=== PATIENT | male | born 1955 | race Caucasian/White ===

== ENCOUNTER 2016-12-24 16:55 | Emergency (ER) | payer MEDICARE ==
[2016-12-24 21:02] LABS: BASOPHILS 0.1 % (0-2); EOSINOPHILS 0.8 % (0-7); HEMATOCRIT 38.5 % (42.0-54.0); HEMOGLOBIN 12.4 g/dL (13.5-17.5); IMMATURE GRANULOCYTES 0.3 % (0-5); MCH 29.2 pg (26.0-34.0); MCHC 32.2 g/dL (31.0-37.0); MCV 90.8 fL (80.0-100.0); MEAN PLATELET VOLUME 8.9 fL (7.4-10.4); MONOCYTES 4.4 % (2-11); NEUTROPHILS 78.4 % (40-80); PLATELET COUNT 248 10x3/uL (130-400); RBC 4.24 10x6/uL (4.20-6.10); RDW 14.3 % (11.5-14.5); WBC 13.6 10x3/uL (4.8-10.8)
[2016-12-24 21:28] LABS: ALBUMIN 3.1 g/dL (3.4-5.0); BILIRUBIN - TOTAL 0.24 mg/dL (0.2-1.3); CALCIUM 9.4 mg/dL (8.5-10.1); CARBON DIOXIDE 25.8 mmol/L (21.0-32.0); CREATININE - SERUM 1.1 mg/dL (0.6-1.3); POTASSIUM - SERUM 3.8 mmol/L (3.5-5.1); PROTEIN - SERUM 7.5 g/dL (6.4-8.2)
== END 2016-12-24 22:00 | disposition home or self-care (01) ==
LOC: D.ER 16:55
PROVIDERS: Nurse Practitioner Family
DX: R19.7 Diarrhea, unspecified (principal); R05 Cough; M54.2 Cervicalgia; M54.5 Low back pain; J44.1 Chronic obstructive pulmonary disease with (acute) exacerbation; I10 Essential (primary) hypertension

== ENCOUNTER 2017-03-02 11:24 | Emergency (ER) | payer MEDICARE | END 2017-03-02 13:25 | disposition home or self-care (01) | LOC: D.ER 11:24 | DX: M54.5 Low back pain (principal); M54.10 Radiculopathy, site unspecified ==

== ENCOUNTER 2017-03-16 09:24 | Emergency (ER) | payer MEDICARE | END 2017-03-16 11:30 | disposition home or self-care (01) | LOC: D.ER 09:24 | DX: M54.16 Radiculopathy, lumbar region (principal); I10 Essential (primary) hypertension; J44.9 Chronic obstructive pulmonary disease, unspecified ==

== ENCOUNTER 2017-03-23 11:23 | Emergency (ER) | payer MEDICARE | END 2017-03-23 12:59 | disposition home or self-care (01) | LOC: D.ER 11:23 | DX: R06.00 Dyspnea, unspecified (principal); J45.909 Unspecified asthma, uncomplicated; J44.9 Chronic obstructive pulmonary disease, unspecified; I10 Essential (primary) hypertension; F17.200 Nicotine dependence, unspecified, uncomplicated ==

== ENCOUNTER 2017-04-10 10:16 | Emergency (ER) | payer MEDICARE | END 2017-04-10 12:15 | disposition home or self-care (01) | LOC: D.ER 10:16 | DX: M54.5 Low back pain (principal); M62.838 Other muscle spasm; J44.9 Chronic obstructive pulmonary disease, unspecified; I10 Essential (primary) hypertension ==

== ENCOUNTER 2017-05-05 10:09 | Emergency (ER) | payer MEDICARE ==
[2017-06-30 17:41] VITALS: BMI 28.2
== END 2017-05-05 12:23 | disposition home or self-care (01) ==
LOC: D.ER 10:09
DX: M54.16 Radiculopathy, lumbar region (principal); J44.9 Chronic obstructive pulmonary disease, unspecified; I10 Essential (primary) hypertension

== ENCOUNTER 2017-05-06 13:04 | Emergency (ER) | payer MEDICARE ==
[2017-05-06 15:00] LABS: BASOPHILS 0.3 % (0-2); EOSINOPHILS 1.3 % (0-7); HEMATOCRIT 43.7 % (42.0-54.0); HEMOGLOBIN 13.7 g/dL (13.5-17.5); IMMATURE GRANULOCYTES 0.2 % (0-5); LYMPHOCYTES 20.1 % (15-50); MCH 28.6 pg (26.0-34.0); MCHC 31.4 g/dL (31.0-37.0); MCV 91.2 fL (80.0-100.0); MEAN PLATELET VOLUME 9.3 fL (7.4-10.4); MONOCYTES 7.1 % (2-11); RBC 4.79 10x6/uL (4.20-6.10); RDW 14.4 % (11.5-14.5); WBC 11.2 10x3/uL (4.8-10.8)
[2017-05-06 15:04] LABS: APPEARANCE CLEAR (CLEAR); COLOR YELLOW (YELLOW)
[2017-05-06 15:04] LABS: PLATELET COUNT 480 10x3/uL (130-400)
[2017-05-06 15:05] LABS: BILIRUBIN NEGATIVE (NEGATIVE); GLUCOSE NEGATIVE (NEGATIVE); KETONE NEGATIVE (NEGATIVE); NITRITE NEGATIVE (NEGATIVE); PROTEIN NEGATIVE (NEGATIVE); SPECIFIC GRAVITY 1.015 (1.005-1.020); UROBILINOGEN NORMAL (NORMAL)
[2017-05-06 16:02] LABS: ALBUMIN 3.7 g/dL (3.4-5.0); ANION GAP 18.6 mmol/L (8-16); BILIRUBIN - TOTAL 0.12 mg/dL (0.2-1.3); CALCIUM 9.3 mg/dL (8.5-10.1); CARBON DIOXIDE 20.8 mmol/L (21.0-32.0); CREATININE - SERUM 1.5 mg/dL (0.6-1.3); POTASSIUM - SERUM 4.4 mmol/L (3.5-5.1); PROTEIN - SERUM 7.6 g/dL (6.4-8.2)
[2017-06-30 17:41] VITALS: BMI 28.2
== END 2017-05-06 19:40 | disposition home or self-care (01) ==
LOC: D.ER 13:04
PROVIDERS: Family Medicine; Physician Assistant
DX: R10.32 Left lower quadrant pain (principal); R10.31 Right lower quadrant pain; J44.9 Chronic obstructive pulmonary disease, unspecified; I10 Essential (primary) hypertension; Z79.01 Long term (current) use of anticoagulants; F17.200 Nicotine dependence, unspecified, uncomplicated

== ENCOUNTER 2017-06-01 10:32 | Emergency (ER) | payer MEDICARE ==
[2017-06-30 17:41] VITALS: BMI 28.2
== END 2017-06-01 13:58 | disposition home or self-care (01) ==
LOC: D.ER 10:32
DX: M54.16 Radiculopathy, lumbar region (principal); I10 Essential (primary) hypertension; J44.9 Chronic obstructive pulmonary disease, unspecified; F17.200 Nicotine dependence, unspecified, uncomplicated

== ENCOUNTER 2017-06-16 11:28 | Emergency (ER) | payer MEDICARE ==
[2017-06-30 17:41] VITALS: BMI 28.2
== END 2017-06-16 16:16 | disposition home or self-care (01) ==
LOC: D.ER 11:28
DX: M54.16 Radiculopathy, lumbar region (principal); I10 Essential (primary) hypertension; J44.9 Chronic obstructive pulmonary disease, unspecified; J45.909 Unspecified asthma, uncomplicated

== ENCOUNTER 2017-06-29 22:17 | Inpatient (IN) | payer MEDICARE ==
[~2017-06-29] VITALS: Ht 165.1 cm; Wt 77.1 kg
[2017-06-29 22:56] LABS: BASOPHILS 0.1 % (0-2); EOSINOPHILS 1.2 % (0-7); HEMATOCRIT 33.7 % (42.0-54.0); HEMOGLOBIN 10.6 g/dL (13.5-17.5); IMMATURE GRANULOCYTES 0.3 % (0-5); LYMPHOCYTES 15.5 % (15-50); MCH 28.6 pg (26.0-34.0); MCHC 31.5 g/dL (31.0-37.0); MCV 91.1 fL (80.0-100.0); MONOCYTES 6.3 % (2-11); NEUTROPHILS 76.6 % (40-80); RDW 15.1 % (11.5-14.5); WBC 15.3 10x3/uL (4.8-10.8)
[2017-06-29 22:58] LABS: PLATELET COUNT 371 10x3/uL (130-400)
[2017-06-29 23:20] LABS: ALKALINE PHOSPHATASE 90 U/L (46-116); ALT (SGPT) 71 U/L (10-68); BILIRUBIN - TOTAL 0.25 mg/dL (0.2-1.3); CALC OSMOLALITY 292 mosm/kg (275-300); CALCIUM 7.9 mg/dL (8.5-10.1); CARBON DIOXIDE 22.6 mmol/L (21.0-32.0); CHLORIDE - SERUM 106 mmol/L (98-107); CREATININE - SERUM 5.4 mg/dL (0.6-1.3); GLUCOSE 83 mg/dL (74-106); POTASSIUM - SERUM 4.9 mmol/L (3.5-5.1); PROTEIN - SERUM 7.1 g/dL (6.4-8.2); SODIUM 141 mmol/L (136-145); UREA NITROGEN 50 mg/dL (7-18); eGFR NON AFRICAN AMERICAN 11 mL/min (90-120)
[2017-06-29 23:35] LABS: AMYLASE - SERUM 49 U/L (25-115); CREATINE KINASE 13673 UL (21-232); LIPASE 86 U/L (73-393); PRO BNP 109 pg/mL (0-125); TROPONIN-I < 0.017 ng/mL (0.000-0.060)
[2017-06-30 00:02] LABS: CKMB 79.2 U/L (0.0-3.6)
[2017-06-30 00:24] LABS: APPEARANCE CLEAR (CLEAR); BILIRUBIN NEGATIVE (NEGATIVE); COLOR YELLOW (YELLOW); GLUCOSE NEGATIVE (NEGATIVE); KETONE NEGATIVE (NEGATIVE); NITRITE NEGATIVE (NEGATIVE); PROTEIN TRACE mg/dL (NEGATIVE); UROBILINOGEN NORMAL (NORMAL)
[2017-06-30 00:25] LABS: BACTERIA FEW /hpf (NONE SEEN); EPITHELIAL CELLS 0-5 /hpf (0-5); HYALINE CAST OCC /lpf (NONE SEEN); RED CELLS - URINE 0-5 /hpf (0-5); WHITE CELLS - URINE 0-5 /hpf (0-5)
[2017-06-30 00:27] LABS: UDS - AMPHET NEGATIVE QUAL (NEGATIVE); UDS - BARB NEGATIVE QUAL (NEGATIVE); UDS - BENZO POSITIVE QUAL (NEGATIVE); UDS - COCAINE NEGATIVE QUAL (NEGATIVE); UDS - OPIATE NEGATIVE QUAL (NEGATIVE); UDS - PCP NEGATIVE QUAL (NEGATIVE); UDS - THC NEGATIVE QUAL (NEGATIVE)
[2017-06-30 02:28] LABS: BASOPHILS 0.1 % (0-2); EOSINOPHILS 1.5 % (0-7); HEMATOCRIT 28.5 % (42.0-54.0); HEMOGLOBIN 8.9 g/dL (13.5-17.5); IMMATURE GRANULOCYTES 0.3 % (0-5); LYMPHOCYTES 13.2 % (15-50); MCH 28.7 pg (26.0-34.0); MCHC 31.2 g/dL (31.0-37.0); MCV 91.9 fL (80.0-100.0); MEAN PLATELET VOLUME 9.3 fL (7.4-10.4); MONOCYTES 6.5 % (2-11); NEUTROPHILS 78.4 % (40-80); PLATELET COUNT 392 10x3/uL (130-400); RDW 15.3 % (11.5-14.5); WBC 13.8 10x3/uL (4.8-10.8)
--- NOTE | 2017-06-30 03:30 | NUR ---
RECIEVED TO ROOM 2132 FROM ER VIA STRETCHER. RESPERATIONS EVEN ON O2 AT 2 LITER VIA NC. PLACED ON TELEMETRY. IV TO LEFT AC SL, SITE CLEAN AND DRY. PT DENIES PAIN OR NEEDS, BED LOW, CL IN REACH.
[2017-06-30 03:45] VITALS: BMI 28.3
[2017-06-30] MEDS ORDERED: VALIUM10 MG PO (03:56)
[2017-06-30] MEDS ORDERED: ZANAFLEX4 MG PO (03:57)
[2017-06-30] MEDS ORDERED: DESERYL100 MG PO (03:57)
[2017-06-30] MEDS ORDERED: ELIQUIS2.5 MG PO (03:58)
[2017-06-30 06:23] LABS: BASOPHILS 0.2 % (0-2); EOSINOPHILS 1.9 % (0-7); HEMATOCRIT 30.1 % (42.0-54.0); HEMOGLOBIN 9.3 g/dL (13.5-17.5); IMMATURE GRANULOCYTES 0.3 % (0-5); LYMPHOCYTES 19.7 % (15-50); MCH 28.4 pg (26.0-34.0); MCHC 30.9 g/dL (31.0-37.0); MONOCYTES 6.6 % (2-11); NEUTROPHILS 71.3 % (40-80); PLATELET COUNT 373 10x3/uL (130-400); RBC 3.27 10x6/uL (4.20-6.10); RDW 15.4 % (11.5-14.5)
--- NOTE | 2017-06-30 06:25 | NUR ---
COTTON PRESSER AT BED SIDE, BATH COMPLETE.
[2017-06-30 06:32] VITALS: BP 95/41
[2017-06-30 06:40] LABS: ALBUMIN 2.4 g/dL (3.4-5.0); BILIRUBIN - TOTAL 0.2 mg/dL (0.2-1.3); CALCIUM 7.1 mg/dL (8.5-10.1); PROTEIN - SERUM 5.8 g/dL (6.4-8.2)
--- NOTE | 2017-06-30 07:00 | NUR ---
RECEIVED REPORT. ASSUMED CARE OF PATIENT. CALL LIGHT WITHIN REACH. PATIENT ALERT/AWAKE SITTING UP IN BED. RESP EVEN AND UNLABORED. TRACH NOTED. NO DISTRESS. DENIES NEEDS AT THIS TIME.
[2017-06-30 08:22] VITALS: BP 100/52
--- NOTE | 2017-06-30 08:41 | NUR ---
SCDS APPLIED TO BILATERAL LOWER EXTREMITIES.
--- NOTE | 2017-06-30 09:26 | NUR ---
NEW ORDERS FROM TO MAKE PATIENT NPO FOR EDG DUE TO FINDINGS ON CT.
--- NOTE | 2017-06-30 10:03 | NUR ---
0950 CONSENTS SIGNED AND ON CHART FOR EDG.
--- NOTE | 2017-06-30 10:35 | NUR ---
PATIENT SITTING IN HIS BED. PATIENT FOUND TO BE DRINKING WATER. EXPLAINED TO PATIENT AGAIN THAT HE IS NPO FOR THE PROCEDURE. IV FLUIDS FOUND TURNED OFF AND PATIENT STATES THAT HE TURNED THE PUMP OFF. INSTRUCTED PATIENT TO PLEASE CALL THE STAFF OR NURSE AND NOT TO MESS WITH THE IV EQUIPMENT. PATIENT IS ALERT/ORIENTED BUT REQUIRES FREQUENT QUES AND REMINDERS.
[2017-06-30 12:37] VITALS: BP 105/56
[2017-06-30 13:15] VITALS: BMI 28.2
--- NOTE | 2017-06-30 16:14 | NUR ---
PREOP MEDICATIONS ADMINISTERED. PATIENT LEFT UNIT VIA BED AT THIS TIME. NO DISTRESS UPON LEAVING UNIT.
[2017-06-30 16:28] VITALS: BP 113/62
--- NOTE | 2017-06-30 17:15 | NUR ---
RECEIVED REPORT FROM MILADIS. PATIENT BACK TO UNIT SOON. NO TREATMENT NEEDED. NO BLEEDING AREAS.
--- NOTE | 2017-06-30 17:31 | NUR ---
RECEIVED PATIENT BACK FROM EGD. RESTING WITH EYES CLOSED, EASILY AROUSED. BP 125/66. IV FLUIDS INFUSING ORDERED. CALL LIGHT WITHIN REACH. NO DISTRESS.
[2017-06-30 17:41] VITALS: Ht 165.1 cm; Wt 77.1 kg
[2017-06-30 21:26] VITALS: BP 135/89
--- NOTE | 2017-06-30 21:40 | NUR ---
HS MEDS GIVEN WITH FRESH ICE WATER. ULTRAM 1 TAB GIVEN FOR C/O GENERALIZED PAIN.
[2017-07-01] VITALS: BP 136/81
--- NOTE | 2017-07-01 01:37 | NUR ---
ANSWERED CL, PT UP IN ROOM, HAS CL, O2 TUBING, TELEPHONE, AND IV TUBING ALL TANGLED UP TOGETHER. ASKED PT WHAT HE WAS DOING AND HE STATED THAT HE WAS TRYING TO DE TANGLE THE WIRES, STATED THAT THE NURSE CAME IN AND TOOK OFF HIS TELEMETRY, INFORMED PT THAT I WAS HIS NURSE AND THAT I DID NO SUCH THING, PT THEN STATED THAT IT WAS ANOTHER NURSE THAT CAME IN AND MADE SUCH A MESS. ASSISTED PT BACK TO BED AND UNTANGLED ALL WIRES. APPLIED NEW TELEMETRY STICKERS AND RECONNECTED MONITOR. PT ASKING WHERE HIS PANCAKES, WAFFLES, COFFEE AND ORANGE JUICE WAS, TOLD PT THAT IT IS ONE OCLOCK IN THE MORNING, THE KITCHEN IS CLOSED BUT WILL DO MY BEST TO GET HIM WHAT HE IS ASKING FOR IN THE MORNING. ASKED PT TO STAY IN BED AND USE CL IF NEEDED ASSISTANCE.
--- NOTE | 2017-07-01 03:21 | NUR ---
PT IN BED RESTING QUIETLY. BREATHING EVEN AND UNLABORED. WILL CTM.
[2017-07-01 04:59] LABS: BASOPHILS 0.2 % (0-2); EOSINOPHILS 2.5 % (0-7); HEMATOCRIT 27.8 % (42.0-54.0); HEMOGLOBIN 8.7 g/dL (13.5-17.5); IMMATURE GRANULOCYTES 0.1 % (0-5); MCH 28.4 pg (26.0-34.0); MCHC 31.3 g/dL (31.0-37.0); MCV 90.8 fL (80.0-100.0); MEAN PLATELET VOLUME 8.9 fL (7.4-10.4); MONOCYTES 5.9 % (2-11); NEUTROPHILS 69.3 % (40-80); PLATELET COUNT 348 10x3/uL (130-400); RBC 3.06 10x6/uL (4.20-6.10); RDW 15.4 % (11.5-14.5)
[2017-07-01 05:10] LABS: WBC 8.8 10x3/uL (4.8-10.8)
--- NOTE | 2017-07-01 05:17 | NUR ---
RESTING WITH EYES CLOSED, RESPERATIONS EVEN, NO S/S DISTRESS NOTED.
[2017-07-01 05:19] LABS: % SATURATION 6 % (15-55); IRON 14 ug/dl (35-150); TOTAL IRON BIND CAPACITY 227 ug/dl (260-445); UNSAT IRON BIND CAPACITY 213 ug/dl (150-375)
[2017-07-01 05:45] LABS: ALBUMIN 2.4 g/dL (3.4-5.0); ALKALINE PHOSPHATASE 76 U/L (46-116); ALT (SGPT) 62 U/L (10-68); BILIRUBIN - TOTAL 0.15 mg/dL (0.2-1.3); CALC OSMOLALITY 282 mosm/kg (275-300); CALCIUM 7.3 mg/dL (8.5-10.1); CARBON DIOXIDE 24.8 mmol/L (21.0-32.0); CHLORIDE - SERUM 110 mmol/L (98-107); CKMB 21.2 U/L (0.0-3.6); CREATINE KINASE 6042 UL (21-232); CREATININE - SERUM 1.8 mg/dL (0.6-1.3); FERRITIN 68 ng/mL (3-244); GLUCOSE 83 mg/dL (74-106); MAGNESIUM - SERUM 2.1 mg/dL (1.8-2.4); POTASSIUM - SERUM 4.4 mmol/L (3.5-5.1); PROTEIN - SERUM 6.1 g/dL (6.4-8.2); SODIUM 141 mmol/L (136-145); THYROID STIMULATING HORMONE 2.13 uIU/mL (0.36-3.74); UREA NITROGEN 22 mg/dL (7-18); eGFR NON AFRICAN AMERICAN 41 mL/min (90-120)
[2017-07-01 06:27] VITALS: BP 114/66
--- NOTE | 2017-07-01 07:09 | NUR ---
PT IN BED, RESP EVEN AND UNLABORED. LT AC SL, PT C/O OF BACK PAIN, WILL SEE IF HE CAN HAVE SOMETHING FOR PAIN. MANUFACTURER'S SERVICE REPRESENTATIVE AT BEDSIDE TO DO VITAL SIGNS. PT DENIES ANY NEEDS AT THIS TIME. CALL LIGHT IN REACH, NAD NOTED, WILL CONTINUE CONTINUE PLAN OF CARE.
[2017-07-01 07:31] VITALS: BP 126/72
--- NOTE | 2017-07-01 08:38 | NUR ---
VALIUM GIVEN ORDERED ALSO ADMINSITERED 50MG OF ULTRAM GIVEN FOR PAIN LEVEL OF 10/10. PT ASKING ABOUT HIS ELIQUIS, STATED " I HAVE BLOOD CLOTS ON MY LUNGS SO I NEED TO TAKE IT." INFOMRED PT THAT I WOULD CALL THE DOCTOR TO SEE IF WE CAN HAVE THE ELIQUIS STARTED. PT IN BED, DENIES ANY OTHER NEEDS AT THIS TIME. CALL LIGHT IN REACH, NAD NOTED, WILL CONTINUE PLAN OF CARE.
--- NOTE | 2017-07-01 11:10 | NUR ---
PT'S LIGHT ON, WENT TO CHECK ON PT, AND PT STATED " MY IV CAME OUT, I WAS GOING TO THE BATHROOM AND IT CAME OUT." IV OUT WITH TIP INTACT, CLEANED SITE AND COVERED WITH 2X2 AND TAPE. PT DENIES ANY NEEDS AT THIS TIME. CALL LIGHT IN REACH, NAD NOTED, WILL CONTINUE PLAN OF CARE.
[2017-07-01 11:41] VITALS: BP 105/68
[2017-07-01 16:37] VITALS: BP 115/62
--- NOTE | 2017-07-01 17:03 | NUR ---
Patient Name: ZAIRE CARRILLO Admission Status: ER Accout number: [id number] Admission Date: 06-30-2017 : 1955 Admission Diagnosis: Attending: Julio Trevino Current LOS: 1 Anticipated DC Date: 07-02-2017 Planned Disposition: Home Primary Insurance: MEDICARE A & B Discharge Planning Comments: * Is the patient Alert and Oriented? Yes 0 * How many steps to enter\exit or inside your home? 3 0 * PCP DR. REYNAGA AT [facility] ON [address] * Pharmacy [facility] OR [facility] AT [address] 0 * Preadmission Environment Home Alone 0 * ADLs Independent 0 * Equipment Cane 0 * Other Equipment NO MEDICAL EQUIPMENT PROVIDER PREFERENCE 0 * List name and contact numbers for known caregivers / representatives who currently or will assist patient after discharge: BROTHER TERRAZAS, 0 * Community resources currently utilized None 0 * Please name any agencies selected above. NONE 0 * Additional services required to return to the preadmission environment? No 0 * Can the patient safely return to the preadmission environment? Yes 0 * Has this patient been hospitalized within the prior 30 days at any hospital? No 0 CM RECEIVED ORDER TO ASCERTAIN PT'S LIVING SITUATION AND DISCHARGE PLANNING. CM MET WITH PT IN ROOM TO DISCUSS DISCHARGE PLANNING AND NEEDS. PT REPORTS LIVING AT [facility], HAS APARTMENT WITH A ROOMMATE. PT HAS ASSISTANCE WITH MEAL PREPARATION AND TRANSPORATATION AT TIMES BUT THAT IS SPORADIC. PT HAS A CANE ONLY WITH NO MEDICAL EQUIPMENT PROVIDER AND NO OUTSIDE SERVICES ASSISTING IN THE HOME. CM DISCUSSED AVAILABILITY OF HOME HEALTH, REHAB SERVICES AND MEDICAL EQUIPMENT. PT DENIES DISCHARGE NEEDS, REPORTS HE WILL CALL [facility] TO PICK HIM UP AT DISCHARGE. CM TO CONTINUE TO FOLLOW AND ASSIST NEEDED. Concrete Block Molder: Tommy Hope
--- NOTE | 2017-07-01 20:45 | NUR ---
PT RESTING COMFORTABLY, EASILY ROUSABLE TO VERBAL STIMULI, NO NEEDS AT THIS TIME. CONTINUE TO MONITOR CLOSELY.
[2017-07-01 21:03] VITALS: BP 140/87
--- NOTE | 2017-07-02 02:28 | NUR ---
PT DISROBES AND WALKS AROUND THE UNIT SEARCHING FOR A BATHROOM AND WANTING TO USE THE PHONE. PT DEMONSTRATES CONFUSION WITH PLACE, TIME, AND SITUATION. PT WILL NOT STAY IN BED LONG ENOUGH TO KEEP HIS IV INFUSING. PT IS EASILY REORIENTED, HOWEVER, HE FORGETS QUICKLY. CURRENTLY PT IS SITTING UP IN HIS BED, NO NEEDS. CONTINUE TO MONITOR CLOSELY.
[2017-07-02 04:47] LABS: BASOPHILS 0.3 % (0-2); EOSINOPHILS 3.1 % (0-7); HEMATOCRIT 28.3 % (42.0-54.0); HEMOGLOBIN 8.7 g/dL (13.5-17.5); IMMATURE GRANULOCYTES 0.1 % (0-5); LYMPHOCYTES 30.4 % (15-50); MCHC 30.7 g/dL (31.0-37.0); MEAN PLATELET VOLUME 9.2 fL (7.4-10.4); MONOCYTES 7.5 % (2-11); NEUTROPHILS 58.6 % (40-80); PLATELET COUNT 382 10x3/uL (130-400); RBC 3.11 10x6/uL (4.20-6.10); RDW 15.2 % (11.5-14.5); WBC 7.1 10x3/uL (4.8-10.8)
--- NOTE | 2017-07-02 05:36 | NUR ---
MR. CARRILLO WAS FOUND GOING INTO OTHER PTS ROOM, COMPLETELY NUDE, CONFUSED, AND MAKING THE OTHER PATIENTS IN ROOM 2129 AND 2128 UNCOMFORTABLE. PT WAS ESCORTED BACK TO HIS ROOM BY KE LEE, AND ASKED TO PLEASE STAY IN HIS ROOM AFTER GETTING DRESSED. PT HAS BEEN ACTING INAPPROPRIATE ALL SHIFT, HAS BEEN RESTLESS, AND WANDERING THE UNIT MOST OF THIS SHIFT.
[2017-07-02 05:40] VITALS: BP 157/79
[2017-07-02 05:41] LABS: ALBUMIN 2.4 g/dL (3.4-5.0); ALKALINE PHOSPHATASE 75 U/L (46-116); ALT (SGPT) 55 U/L (10-68); BILIRUBIN - TOTAL 0.14 mg/dL (0.2-1.3); CALC OSMOLALITY 278 mosm/kg (275-300); CALCIUM 7.6 mg/dL (8.5-10.1); CHLORIDE - SERUM 108 mmol/L (98-107); CKMB 7.7 U/L (0.0-3.6); CREATINE KINASE 2920 UL (21-232); CREATININE - SERUM 1.5 mg/dL (0.6-1.3); GLUCOSE 88 mg/dL (74-106); MAGNESIUM - SERUM 1.9 mg/dL (1.8-2.4); POTASSIUM - SERUM 4.3 mmol/L (3.5-5.1); SODIUM 140 mmol/L (136-145); UREA NITROGEN 15 mg/dL (7-18); eGFR NON AFRICAN AMERICAN 51 mL/min (90-120)
[2017-07-02] MEDS ORDERED: PROTONIX40 MG PO (06:55)
[2017-07-02] MEDS ORDERED: CARAFATE1 G/10 ML PO (06:56)
[2017-07-02 08:22] LABS: FOLATE (FOLIC ACID) - SERUM 6.8 ng/mL (>3.0)
--- NOTE | 2017-07-02 08:24 | NUR ---
AM MEDS GIVEN AT THIS TIME. PT ASKING WHEN HE CAN HAVE PAIN MEDICATION. INFOMRED PT THAT IT WOULD BE AROUND 12. PT IN BED, EATING BREAKFAST, DENIES ANY OTHER NEEDS AT THIS TIME. CALL LIGHT IN REACH,NAD NOTED, WILL CONTINUE PLAN OF CARE.
[2017-07-02 08:34] VITALS: BP 159/59
--- NOTE | 2017-07-02 10:50 | NUR ---
PROVIDED VERBAL AND WRITTEN DISCHARGE TEACHING TO PT, PT VERBALIZED UNDERSTANDING, D/C RT FA IV, TIP INTACT. PT STATED TAXI IS WAITING FOR HIM DOWNSTAIRS. PT LEFT UNIT VIA WHEELCHAIR, NAD NOTED.
--- NOTE | 2017-07-02 18:08 | NUR ---
Patient Name: ZAIRE CARRILLO Encounter No: [id number] : 1955 Primary Insurance: MEDICARE A & B Anticipated DC Date: 07-02-2017 Planned Disposition: Home LATE ENTRY: DCP follow-up note: CM RECEIVED HOME HEALTH ORDER, WAS ADVISED BY PLATE CORRECTOR NURSE THAT THEY ATTEMPTED TO SCHEDULE FOLLOW UP APPOINTMENT WITH DR. REYNAGA AND PT HAS BEEN FIRED BY THE DOCTOR. CM CALLED DR. GLEZ, SPOKE TO 'S NURSE, NOTIFIED THAT PT HAS NO PRIMARY CARE DOCTOR AND FOR HOME HEALTH TO BE ARRANGED, DR. GLEZ WOULD HAVE TO ORDER AND FOLLOW ORDERS FOR HOME HEALTH; DR. GLEZ WAS CONTACTED BY HIS NURSE WHO ADVISED CM THAT THE DOCTOR WILL NOT FOLLOW FOR HOME HEALTH AND NO HOME HEALTH TO BE ARRANGED. CM MET WITH PT IN ROOM WHO REPORTS HE WAS NOT INFORMED OF HIS PRIMARY DOCTORS DECISION TO NOT SEE HIM ANY LONGER. CM PROVIDED PT WITH MEDICARE LISTING OF LOCAL DOCTORS AND ALSO INFORMATION TO [facility]. CM DISCUSSED IMPORTANCE OF SECURING PRIMARY CARE SOON POSSIBLE. PT REPORTED UNDERSTANDING AND HAS CALLED [facility] FOR TRANSPORTATION HOME. PT DENIES NEEDS. Tommy Hope, CASE MANAGEMENT
== END 2017-07-02 11:06 | disposition home or self-care (01) | DRG 381 ==
LOC: D.ER 22:17 → D.M2 06-30 02:27
PROVIDERS: Family Medicine; Internal Medicine Gastroenterology; ADMIT Family Medicine
PROC: 0DB78ZX Excision of Stomach, Pylorus, Via Natural or Artificial Opening Endoscopic, Diagnostic (ICD-10-PCS; 2017-06-30)
PROC: 0DB58ZX Excision of Esophagus, Via Natural or Artificial Opening Endoscopic, Diagnostic (ICD-10-PCS; 2017-06-30)
PROC: 0DB98ZX Excision of Duodenum, Via Natural or Artificial Opening Endoscopic, Diagnostic (ICD-10-PCS; principal; 2017-06-30 16:00)
DX: K22.11 Ulcer of esophagus with bleeding (principal); D62 Acute posthemorrhagic anemia; M62.82 Rhabdomyolysis; N17.9 Acute kidney failure, unspecified; K44.9 Diaphragmatic hernia without obstruction or gangrene; K22.70 Barrett's esophagus without dysplasia; K29.70 Gastritis, unspecified, without bleeding; Z93.0 Tracheostomy status; I10 Essential (primary) hypertension; Z72.0 Tobacco use

== ENCOUNTER 2017-07-09 11:23 | Emergency (ER) | payer MEDICARE ==
[2017-06-30 17:41] VITALS: BMI 28.2
[~2017-07-09 11:23] MED LIST: CARAFATE1 G/10 ML PO; DESERYL100 MG PO; ELIQUIS2.5 MG PO; PROTONIX40 MG PO; VALIUM10 MG PO; ZANAFLEX4 MG PO
== END 2017-07-09 12:50 | disposition home or self-care (01) ==
LOC: D.ER 11:23
DX: M54.16 Radiculopathy, lumbar region (principal); J44.9 Chronic obstructive pulmonary disease, unspecified; I10 Essential (primary) hypertension

== ENCOUNTER 2017-07-10 14:17 | Emergency (ER) | payer MEDICARE ==
[2017-06-30 17:41] VITALS: BMI 28.2
== END 2017-07-10 16:10 | disposition home or self-care (01) ==
LOC: D.ER 14:17
DX: M54.5 Low back pain (principal)

== ENCOUNTER 2017-07-16 12:04 | Emergency (ER) | payer MEDICARE ==
[2017-06-30 17:41] VITALS: BMI 28.2
== END 2017-07-16 16:06 | disposition home or self-care (01) ==
LOC: D.ER 12:04
DX: M54.30 Sciatica, unspecified side (principal); S39.012A Strain of muscle, fascia and tendon of lower back, initial encounter; X58.XXXA Exposure to other specified factors, initial encounter; Y93.89 Activity, other specified; Y92.019 Unspecified place in single-family (private) house as the place of occurrence of the external cause; M62.838 Other muscle spasm; I10 Essential (primary) hypertension; J44.9 Chronic obstructive pulmonary disease, unspecified

== ENCOUNTER 2017-08-01 11:42 | Emergency (ER) | payer MEDICARE ==
[2017-06-30 17:41] VITALS: BMI 28.2
== END 2017-08-01 14:49 | disposition home or self-care (01) ==
LOC: D.ER 11:42
DX: S00.03XA Contusion of scalp, initial encounter (principal); Y04.2XXA Assault by strike against or bumped into by another person, initial encounter; Y93.89 Activity, other specified; Y92.019 Unspecified place in single-family (private) house as the place of occurrence of the external cause; M54.2 Cervicalgia; R15.9 Full incontinence of feces; R32 Unspecified urinary incontinence; Z79.01 Long term (current) use of anticoagulants; I10 Essential (primary) hypertension

== ENCOUNTER 2017-08-07 12:52 | Emergency (ER) | payer MEDICARE ==
[2017-06-30 17:41] VITALS: BMI 28.2
== END 2017-08-07 15:25 | disposition home or self-care (01) ==
LOC: D.ER 12:52
DX: S29.012A Strain of muscle and tendon of back wall of thorax, initial encounter (principal); X58.XXXA Exposure to other specified factors, initial encounter; Y93.89 Activity, other specified; Y92.89 Other specified places as the place of occurrence of the external cause; M54.9 Dorsalgia, unspecified; I10 Essential (primary) hypertension; M54.2 Cervicalgia

== ENCOUNTER 2017-08-13 10:44 | Emergency (ER) | payer MEDICARE ==
[2017-06-30 17:41] VITALS: BMI 28.2
== END 2017-08-13 13:40 | disposition home or self-care (01) ==
LOC: D.ER 10:44
DX: M54.16 Radiculopathy, lumbar region (principal); I10 Essential (primary) hypertension

== ENCOUNTER 2017-08-28 02:38 | Emergency (ER) | payer MEDICARE ==
[2017-06-30 17:41] VITALS: BMI 28.2
== END 2017-08-28 03:25 | disposition home or self-care (01) ==
LOC: D.ER 02:38
DX: M54.6 Pain in thoracic spine (principal); H60.502 Unspecified acute noninfective otitis externa, left ear; Z79.01 Long term (current) use of anticoagulants; J44.9 Chronic obstructive pulmonary disease, unspecified; I10 Essential (primary) hypertension; J45.909 Unspecified asthma, uncomplicated

== ENCOUNTER 2017-09-05 07:57 | Emergency (ER) | payer MEDICARE ==
[2017-06-30 17:41] VITALS: BMI 28.2
== END 2017-09-05 12:33 | disposition home or self-care (01) ==
LOC: D.ER 07:57
DX: S70.02XA Contusion of left hip, initial encounter (principal); W19.XXXA Unspecified fall, initial encounter; Y93.89 Activity, other specified; Y92.019 Unspecified place in single-family (private) house as the place of occurrence of the external cause; I10 Essential (primary) hypertension; J45.909 Unspecified asthma, uncomplicated

== ENCOUNTER 2017-12-05 10:16 | Emergency (ER) | payer MEDICARE ==
[2017-06-30 17:41] VITALS: BMI 28.2
== END 2017-12-05 11:12 | disposition home or self-care (01) ==
LOC: D.ER 10:16
DX: M50.30 Other cervical disc degeneration, unspecified cervical region (principal); M51.36 Other intervertebral disc degeneration, lumbar region; Z79.01 Long term (current) use of anticoagulants; I10 Essential (primary) hypertension

== ENCOUNTER 2017-12-19 23:19 | Emergency (ER) | payer MEDICARE ==
[2017-06-30 17:41] VITALS: BMI 28.2
== END 2017-12-20 01:45 | disposition home or self-care (01) ==
LOC: D.ER 23:19
DX: S00.11XA Contusion of right eyelid and periocular area, initial encounter (principal); W19.XXXA Unspecified fall, initial encounter; Y93.89 Activity, other specified; Y92.019 Unspecified place in single-family (private) house as the place of occurrence of the external cause; F10.10 Alcohol abuse, uncomplicated; I10 Essential (primary) hypertension

== ENCOUNTER 2018-01-16 16:22 | Emergency (ER) | payer MEDICARE ==
[~2018-01-16] VITALS: Ht 165.1 cm; Wt 68.2 kg
[2018-01-16 16:25] VITALS: Ht 165.1 cm; Wt 68.2 kg
[2018-01-16 23:18] VITALS: BP 137/74
== END 2018-01-16 23:20 | disposition home or self-care (01) ==
LOC: D.ER 16:22
DX: M54.16 Radiculopathy, lumbar region (principal); F11.90 Opioid use, unspecified, uncomplicated

== ENCOUNTER 2018-01-16 23:30 | Emergency (ER) | payer MEDICARE ==
[2018-01-16 16:25] VITALS: BMI 25.0
== END 2018-01-16 23:44 | disposition left against medical advice (07) ==
LOC: D.ER 23:30
DX: M54.16 Radiculopathy, lumbar region (principal); F11.90 Opioid use, unspecified, uncomplicated

== ENCOUNTER 2018-02-12 15:00 | Emergency (ER) | payer MEDICARE ==
[~2018-02-12] VITALS: Ht 165.1 cm; Wt 68.2 kg
[2018-02-12 15:29] VITALS: Ht 165.1 cm; Wt 68.2 kg
[2018-02-12] MEDS ORDERED: ROBAXIN-750750 MG PO (19:47)
[2018-02-12] MEDS ORDERED: VOLTAREN75 MG PO (19:47)
[2018-02-12 21:40] VITALS: BP 132/89
== END 2018-02-12 21:40 | disposition home or self-care (01) ==
LOC: D.ER 15:00
DX: M54.9 Dorsalgia, unspecified (principal); G89.29 Other chronic pain; J44.9 Chronic obstructive pulmonary disease, unspecified; K21.9 Gastro-esophageal reflux disease without esophagitis

== ENCOUNTER 2018-03-18 09:43 | Emergency (ER) | payer MEDICARE ==
[~2018-03-18] VITALS: Ht 165.1 cm; Wt 76.4 kg
[~2018-03-18 09:43] MED LIST changes: +ROBAXIN-750750 MG PO; +VOLTAREN75 MG PO
[2018-03-18 10:00] VITALS: Ht 165.1 cm; Wt 76.4 kg
[2018-03-18 11:34] VITALS: BP 136/94
== END 2018-03-18 11:34 | disposition home or self-care (01) ==
LOC: D.ER 09:43
DX: M54.16 Radiculopathy, lumbar region (principal); Z86.711 Personal history of pulmonary embolism; Z79.01 Long term (current) use of anticoagulants; Z91.14 Patient's other noncompliance with medication regimen; J44.9 Chronic obstructive pulmonary disease, unspecified; K21.9 Gastro-esophageal reflux disease without esophagitis

== ENCOUNTER 2018-06-06 13:52 | Emergency (ER) | payer MEDICARE ==
[~2018-06-06] VITALS: Ht 165.1 cm; Wt 77.3 kg
[2018-06-06 13:57] VITALS: Ht 165.1 cm; Wt 77.3 kg
[2018-06-06] MEDS ORDERED: NEURONTIN 300300 MG (13:57)
[2018-06-06 14:15] LABS: APPEARANCE CLEAR (CLEAR); COLOR STRAW (YELLOW)
[2018-06-06 14:16] LABS: BILIRUBIN NEGATIVE (NEGATIVE); GLUCOSE NEGATIVE (NEGATIVE); KETONE NEGATIVE (NEGATIVE); NITRITE NEGATIVE (NEGATIVE); PROTEIN NEGATIVE (NEGATIVE); SPECIFIC GRAVITY 1.005 (1.005-1.020); UROBILINOGEN NORMAL (NORMAL)
[2018-06-06] MEDS ORDERED: ULTRAM50 MG PO (15:23)
[2018-06-06 16:04] VITALS: BP 156/98
== END 2018-06-06 16:06 | disposition home or self-care (01) ==
LOC: D.ER 13:52
PROVIDERS: Emergency Medicine
DX: M54.16 Radiculopathy, lumbar region (principal)

== ENCOUNTER 2018-06-11 11:32 | Emergency (ER) | payer MEDICARE ==
[~2018-06-11] VITALS: Ht 165.1 cm; Wt 78.6 kg
[~2018-06-11 11:32] MED LIST changes: +NEURONTIN 300300 MG; +ULTRAM50 MG PO
[2018-06-11 11:36] VITALS: Ht 165.1 cm; Wt 78.6 kg
[2018-06-11] MEDS ORDERED: ULTRAM50 MG PO (12:42)
[2018-06-11 13:23] VITALS: BP 155/95
== END 2018-06-11 13:24 | disposition home or self-care (01) ==
LOC: D.ER 11:32
DX: M54.5 Low back pain (principal)

== ENCOUNTER 2018-09-02 16:59 | Emergency (ER) | payer MEDICARE ==
[~2018-09-02] VITALS: Ht 165.1 cm; Wt 77.3 kg
[2018-09-02 17:04] VITALS: Ht 165.1 cm; Wt 77.3 kg
[2018-09-02 20:52] VITALS: BP 108/67
== END 2018-09-02 20:52 | disposition home or self-care (01) ==
LOC: D.ER 16:59
DX: S16.1XXA Strain of muscle, fascia and tendon at neck level, initial encounter (principal); X58.XXXA Exposure to other specified factors, initial encounter; Y93.89 Activity, other specified; Y92.89 Other specified places as the place of occurrence of the external cause